=== PATIENT | female | born 1970 | race Two or more races ===

== ENCOUNTER 2020-06-05 17:33 | Inpatient (IN) | payer MEDICAID ==
[~2020-06-05] VITALS: Ht 152.4 cm; Wt 69.2 kg
[2020-06-05 17:45] VITALS: BP 137/80
[2020-06-05] MEDS ORDERED: ERGO500089 PO (17:58)
[2020-06-05] MEDS ORDERED: OMEP20CA16 PO (17:58)
[2020-06-05] MEDS ORDERED: FERR236T2 PO (17:59)
[2020-06-05] MEDS ORDERED: FLU VACC QS 2020-21(6MOS+)/PF 0.5 ML SYRINGE. VAX IM ONE (18:15)
[2020-06-05] MEDS ORDERED: ONDANSETRON PF 4 MG/2 ML VIAL. IVP PRN (18:45)
[2020-06-05 19:00] VITALS: BP 112/64
[2020-06-05] MEDS: IV NORMAL SALINE 1000ML BAG 1,000 ML IV SCH (19:15)
[2020-06-05 19:56] LABS: BILIRUBIN,URINE NEGATIVE (NEG); CLARITY,URINE CLEAR; COLOR,URINE YELLOW; NITRITE,URINE NEGATIVE (NEG); PROTEIN,URINE NEGATIVE (NEG-TRACE)
[2020-06-05 20:04] LABS: BACTERIA,URINE FEW /HPF (0-FEW)
[2020-06-05 20:14] LABS: BASO # 0.1 x10^3/uL (0.0-0.2); BASO % 2 % (0-3); EOS # 0.5 x10^3/uL (0.0-0.7); EOS % 6 % (0-3); HEMATOCRIT 37.7 % (36.0-47.0); HEMOGLOBIN 12.8 g/dL (12.0-15.5); LYMPH % 24 % (24-48); MEAN CORPUSCULAR HEMOGLOBIN 31 pg (25-35); MEAN CORPUSCULAR HGB CONC 34 g/dL (31-37); MEAN CORPUSCULAR VOLUME 92 fL (79-100); MONO # 0.6 x10^3/uL (0.0-1.1); MONO % 7 % (0-9); NEUT # 5.1 x10^3/uL (1.8-7.7); NEUT % 61 % (31-73); PLATELET COUNT 181 x10^3/uL (140-400); RED BLOOD COUNT 4.11 x10^6/uL (3.50-5.40); RED CELL DISTRIBUTION WIDTH 12.8 % (11.5-14.5); WHITE BLOOD COUNT 8.3 x10^3/uL (4.0-11.0)
[2020-06-05 20:20] LABS: CALCIUM 9.2 mg/dL (8.5-10.1); CREATININE 0.7 mg/dL (0.6-1.0); GFR 88.2; POTASSIUM 3.9 mmol/L (3.5-5.1)
[2020-06-05 20:28] LABS: ALBUMIN/GLOBULIN RATIO 0.8 (1.0-1.7); TOTAL BILIRUBIN 0.3 mg/dL (0.2-1.0); TOTAL PROTEIN 6.8 g/dL (6.4-8.2)
[2020-06-05] MEDS ORDERED: CONTRAST GIVEN. MC PRN (21:00)
[2020-06-05] MEDS ORDERED: IOHEXOL 240 MG/ML 50ML VIAL. PO ONE (21:00)
[2020-06-05] MEDS ORDERED: IOHEXOL 300 MG/ML 100ML VIAL. IV ONE (21:00)
--- NOTE | 2020-06-05 21:58 | RAD ---
CT SCAN OF THE ABDOMEN AND PELVIS WITH IV CONTRAST. History: Reason: dxd: LUQ pain / Spl. Instructions: OMNI 300 INJ 75 MLS, PO OMNI 240 30 MLS / Histor y: Comparison:None. Procedure: Contiguous axial images of the abdomen and pelvis were performed after the administration of 75 cc o f Omni 300 IV contrast and oral contrast. Findings: There is a 6 cm length of moderate wall thickening of the proximal sigmoid colon without surrounding inflammation. The appendix is normal. The gallbladder is normal. There is a moderate size hiatal hernia. Liver: There are few subcentimeter cysts in the liver Spleen: Unremarkable Pancreas: Unremarkable Adrenal Glands: Unremarkable Kidneys: There is a small cyst in the posterior left kidney There is no mass or lymphadenopathy. There is no free air. There is no free fluid. The urinary bladder mostly collapsed. Apparent moderate wall thickening is likely hypertrophy.. Impression: 6 cm length of moderate wall thickening of proximal sigmoid colon could be an adenocarcinoma or infla mmatory or infectious colitis. End impression PQRS Compliance Statement: One or more of the following individualized dose reduction techniques were utilized for this examinat ion: 1. Automated exposure control 2. Adjustment of the mA and/or kV according to patient size 3. Use of iterative reconstruction technique Electronically signed by: Lio Sandhu III, MD (06/05/2020 9:55 PM) [place]
--- NOTE | 2020-06-05 22:10 | RAD ---
XR CHEST 2V Technique: PA and lateral views of the chest were obtained. Clinical History: Reason: LEFT LOWER CHEST PAIN / Spl. Instructions: / History: Comparison: None. Findings: The heart and pulmonary vasculature appear within normal limits. There are reticular opacities throu ghout the lungs. The pleural margins are clear. Impression: Reticular opacities of the lungs are nonspecific and could be chronic pulmonary fibrosis. Electronically signed by: Lio Sandhu III, MD (06/05/2020 10:08 PM) [facility]
[2020-06-05] MEDS: fentaNYL PF VIAL 100 MCG/2 ML VIAL IVP PRN (22:39)
[2020-06-05 23:00] VITALS: BP 121/76
[2020-06-06 03:00] VITALS: BP 113/70
[2020-06-06] MEDS: fentaNYL PF VIAL 100 MCG/2 ML VIAL IVP PRN (03:57)
[2020-06-06] MEDS: IV NORMAL SALINE 1000ML BAG 1,000 ML IV SCH ×2 (03:58→16:33)
[2020-06-06 07:00] VITALS: BP 111/93
--- NOTE | 2020-06-06 08:58 | PDOC ---
Provider Note Date of Service: DATE: 06/06/20 TIME: 08:57 Provider Note Pt seen .H&P dictated.#[id number]. DX .Ac abd pain ? colitis Justifications for Admission Other Justification NEVIN SANTIAGO MD Jun 06, 2020 08:58
--- NOTE | 2020-06-06 09:45 | NUR ---
SW following. Discussed with RN, pt from home with family, room air, clear liquid diet, independent. RN advised no SW needs at this time. SW will continue to follow.
--- NOTE | 2020-06-06 09:48 | PDOC2 ---
GI CONSULT Date of Service: DATE: 06/06/20 TIME: 09:47 Reason For Consult: sigmoid adenocarcinoma vs colitis HPI: HPI: 49 y/o female w/ left-sided pain under ribs that began Friday night without precipitating events. Worse w/ movement/walking. Might radiate to middle of abdomen - that just occurred this morning. The pain is "lingering." It was worse at home despite Aleve and ibuprofen so went to see PCP yesterday and was sent to [facility] for workup. H/o GERD improved w/ PPI QD. Might have some dysphagia w/ solid foods hanging - felt in lower chest/epigastrium. Also describes early satiety or possible decreased appetite, though this seems more chronic. No n/v, hematemesis, diarrhea, hematochezia, melena, or weight loss. Strains to have a stool occasionally - last stool day before yesterday. With straining, occasionally passes some bright red blood w/ stool - has happened several times. No previous EGD or colonoscopy. Reports h/o diverticulitis x 3 over the past 6 years - says was seen in ER, had imaging, sent home w/ PO antibiotics and pain i mproved. Current pain is much different. Also h/o anemia so takes iron PRN. No GB, liver, pancreas, or PUD history. PMH: PMH: GERD, diverticulitis, OA FH: Family History: No pertinent hx (deneis GI cancers) Social History: Smoke: Quit ALCOHOL: rare Drugs: None ROS: GEN: Denies fevers, chills, sweats HEENT: Denies blurred vision, sore throat CV: Denies chest pain RESP: Denies shortness of air, cough GI: Per HPI : Denies hematuria, dysuria ENDO: Denies weight changes NEURO: Denies confusion, dizziness MSK: Denies weakness, joint pain/swelling SKIN: Denies jaundice, pruritus Vitals: Vitals: Vital Signs Date Time Temp Pulse Resp B/P (MAP) Pulse Ox O2 Delivery O2 Flow Rate FiO2 06/06/20 07:00 97.5 66 20 111/93 (99) 96 Room Air 97.5 Labs: Labs: Laboratory Tests Test 06/05/20 19:05 06/05/20 20:10 Urine Collection Type Unknown Urine Color Yellow Urine Clarity Clear Urine pH 7.0 (<5.0-8.0) Urine Specific [place] 1.025 (1.000-1.030) Urine Protein Negative mg/dL (NEG-TRACE) Urine Glucose (UA) Negative mg/dL (NEG) Urine Ketones (Stick) Negative mg/dL (NEG) Urine Blood Trace (NEG) Urine Nitrite Negative (NEG) Urine Bilirubin Negative (NEG) Urine Urobilinogen Dipstick 1.0 mg/dL (0.2 mg/dL) Urine Leukocyte Esterase Negative (NEG) Urine RBC 1-2 /HPF (0-2) Urine WBC 1-4 /HPF (0-4) Urine Squamous Epithelial Cells Mod /LPF Urine Bacteria Few /HPF (0-FEW) Urine Mucus Mod /LPF White Blood Count 8.3 x10^3/uL (4.0-11.0) Red Blood Count 4.11 x10^6/uL (3.50-5.40) Hemoglobin 12.8 g/dL (12.0-15.5) Hematocrit 37.7 % (36.0-47.0) Mean Corpuscular Volume 92 fL (79-100) Mean Corpuscular Hemoglobin 31 pg (25-35) Mean Corpuscular Hemoglobin Concent 34 g/dL (31-37) Red Cell Distribution Width 12.8 % (11.5-14.5) Platelet Count 181 x10^3/uL (140-400) Neutrophils (%) (Auto) 61 % (31-73) Lymphocytes (%) (Auto) 24 % (24-48) Monocytes (%) (Auto) 7 % (0-9) Eosinophils (%) (Auto) 6 % (0-3) Basophils (%) (Auto) 2 % (0-3) Neutrophils # (Auto) 5.1 x10^3/uL (1.8-7.7) Lymphocytes # (Auto) 2.0 x10^3/uL (1.0-4.8) Monocytes # (Auto) 0.6 x10^3/uL (0.0-1.1) Eosinophils # (Auto) 0.5 x10^3/uL (0.0-0.7) Basophils # (Auto) 0.1 x10^3/uL (0.0-0.2) Sodium Level 138 mmol/L (136-145) Potassium Level 3.9 mmol/L (3.5-5.1) Chloride Level 104 mmol/L (98-107) Carbon Dioxide Level 27 mmol/L (21-32) Anion Gap 7 (6-14) Blood Urea Nitrogen 12 mg/dL (7-20) Creatinine 0.7 mg/dL (0.6-1.0) Estimated GFR (Cockcroft-Gault) 88.2 BUN/Creatinine Ratio 17 (6-20) Glucose Level 99 mg/dL (70-99) Calcium Level 9.2 mg/dL (8.5-10.1) Total Bilirubin 0.3 mg/dL (0.2-1.0) Aspartate Amino Transf (AST/SGOT) 23 U/L (15-37) Alanine Aminotransferase (ALT/SGPT) 26 U/L (14-59) Alkaline Phosphatase 61 U/L (46-116) Total Protein 6.8 g/dL (6.4-8.2) Albumin 3.0 g/dL (3.4-5.0) Albumin/Globulin Ratio 0.8 (1.0-1.7) Allergies: Coded Allergies: No Known Drug Allergies (Unverified , 06/05/20) Medications: Current Medications Medications (Trade) Dose Ordered Sig/Yanira Route PRN Reason Start Time Stop Time Status Last Admin Dose Admin Sodium Chloride 1,000 ml @ 100 mls/hr Q10H IV 06/05/20 18:45 06/06/20 03:58 Fentanyl Citrate (Fentanyl 2ml Vial) 25 mcg PRN Q3HRS PRN IVP PAIN 06/05/20 18:45 06/06/20 03:57 Iohexol (Omnipaque 240 Mg/ml) 30 ml 1X ONCE PO 06/05/20 21:00 06/05/20 21:01 DC 06/05/20 21:10 Iohexol (Omnipaque 300 Mg/ml) 75 ml 1X ONCE IV 06/05/20 21:00 06/05/20 21:01 DC 06/05/20 21:10 Metronidazole 100 ml @ 100 mls/hr Q12HR IV 06/06/20 10:00 06/06/20 09:38 PE: GEN: NAD HEENT: Atraumatic, PERRL LUNGS: CTAB HEART: RRR ABD: quiet BS, soft, non-distended, tender under left ribs quite laterally EXTREMITY: No edema SKIN: No rashes, no jaundice NEURO/PSYCH: A & O 3 A/P: A/P: Left-sided pain - ?MSK Abnormal CT - 6cm moderate wall thickening in proximal sigmoid colon GERD, early satiety, dysphagia - on PPI, no previous EGD CRC screen - none ?constipation Intermittent blood in stool H/o recurrent diverticulitis Recent NSAID use -- D/w Dr. Sampson. Reviewed w/ Dr. Caraballo - will plan for outpt EGD and colonoscopy. Okay to ADAT. Probably doesn't need antibiotics. Resume PPI. Miralax, etc. if she wants. GIA TRIMBLE Jun 06, 2020 09:48
[2020-06-06 11:00] VITALS: BP 114/67
[2020-06-06] MEDS: CIPROFLOXACIN 400MG PREMIX 200 ML IV SCH ×2 (11:06→21:22)
[2020-06-06] MEDS: PANTOPRAZOLE 40 MG TABLET.DR. PO SCH (11:09)
[2020-06-06] MEDS: ACETAMINOPHEN/CODEINE 300/30MG TABLET. PO PRN ×2 (11:10→21:27)
[2020-06-06] MEDS ORDERED: BISACODYL 5 MG TABLET.DR. PO PRN (11:15)
[2020-06-06] MEDS: POLYETHYLENE GLYCOL 3350 17 GM PACKET. PO SCH (11:57)
[2020-06-06 15:00] VITALS: BP 107/71
--- NOTE | 2020-06-06 17:46 | HP ---
ADMIT DATE: 06/05/2020 MEDICAL HISTORY AND PHYSICAL LOCATION: 416. REASON FOR ADMISSION TO THE HOSPITAL: Severe abdominal pain, left upper quadrant pain for last 24-48 hours. HISTORY OF PRESENT ILLNESS: The patient is a 49-year-old female in [facility]. She was having some loose stools and abdominal pain in left upper quadrant. She had history of diverticulosis in the past. She has pain on and off in the lower quadrant, but never in the left upper quadrant. It was like somebody taking a knife and putting it in the flank. The patient had severe pain, was admitted to the hospital, stat CT scan shows some inflammation in the colon, descending colon and more of a colitis picture. So, the patient was admitted to the hospital and started on broad-spectrum antibiotics, Cipro and Flagyl. GI was consulted. PAST MEDICAL HISTORY: Gastroesophageal reflux disease, diverticulosis, osteoarthritis. FAMILY HISTORY: Unremarkable. SOCIAL HISTORY: Ex-smoker, denies alcohol or drugs. Rare alcohol. FAMILY HISTORY: Unremarkable. REVIEW OF SYMPTOMS: Had a diarrhea, has some loose stool and some blood in the stool after wiping her behind. No vomiting, no fever. Rest of the 14-system review negative. PHYSICAL EXAMINATION: GENERAL: The patient is in a lot of pain in the office. VITAL SIGNS: Temperature 97, pulse 81, respirations 18, blood pressure 137/80, 96 on room air. HEENT: Head is atraumatic. Pupils equal. Oral cavity: No congestion. NECK: Supple. Thyroid not enlarged. JVD not elevated. CHEST: Symmetrical. CARDIOVASCULAR: S1, S2. LUNGS: Clear. ABDOMEN: Soft. Left upper quadrant tenderness to deep palpation. No rebound. Bowel sounds present. No mass palpable. EXTERNAL GENITALIA: Deferred. EXTREMITIES: No calf tenderness, no edema. NEUROLOGIC: Moving all extremities. LABORATORY DATA: White count 8, hemoglobin 13, platelets 181. Electrolytes are; sodium 138, potassium 3.9, chloride 101, bicarbonate 27, BUN 12, creatinine 0.7, glucose 99. LFTs normal. Urine negative for blood or leukocytes. Chest x-ray negative. CT scan of the abdomen and pelvis with contrast shows a 6 cm length of moderate wall thickening, proximal sigmoid colon. FINAL IMPRESSION: 1. Left upper abdominal pain. 2. Possible colitis. 3. Arthritis. PLAN: At this time, admit to hospital. Hydrate with IV fluids, fentanyl for pain control, Cipro and Flagyl. GI is consulted and see how she does in the next 24-48 hours. NEVIN SANTIAGO MD DR: ALEXIS/kristofer JOB#: [id number] / [id number]
[2020-06-06 19:00] VITALS: BP 121/78
[2020-06-06 23:00] VITALS: BP 118/70
[2020-06-07 03:00] VITALS: BP 106/65
[2020-06-07] MEDS: IV NORMAL SALINE 1000ML BAG 1,000 ML IV SCH ×2 (03:41→10:45)
[2020-06-07 07:00] VITALS: BP 110/71
[2020-06-07] MEDS: CIPROFLOXACIN 400MG PREMIX 200 ML IV SCH (07:44)
[2020-06-07] MEDS: PANTOPRAZOLE 40 MG TABLET.DR. PO SCH (07:44)
[2020-06-07] MEDS: POLYETHYLENE GLYCOL 3350 17 GM PACKET. PO SCH (07:44)
--- NOTE | 2020-06-07 09:00 | PDOC ---
PROGRESS NOTES Date of Service: DATE: 06/07/20 TIME: 09:00 Subjective Subjective want to go home Objective Objective Vital Signs Date Time Temp Pulse Resp B/P (MAP) Pulse Ox O2 Delivery O2 Flow Rate FiO2 06/07/20 08:00 Room Air 06/07/20 07:00 98.0 66 18 110/71 (84) 97 98.0 Intake and Output 06/07/20 07:00 Intake Total 3060 ml Output Total 275 ml Balance 2785 ml Intake Oral 660 ml IV Total 1200 ml Other 1200 ml Output Urine Total 275 ml # Voids 3 Physical Exam Abdomen: Soft Heart: Regular rate, Normal S1 Extremities: No clubbing General: Oriented X3 HEENT: PERRLA Lungs: Clear to auscultation Neuro: Normal speech Psych/Mental Status: Mental status NL Skin: No breakdown Assessment Assessment FINAL IMPRESSION: 1. Left upper abdominal pain. 2. Possible colitis. 3. Arthritis. PLAN: ct scan showed colitis CT scan colitis. d/c on oral pills for1 week out pt egd/colon labs ok. At this time, admit to hospital. Hydrate with IV fluids, fentanyl for pain control, Cipro and Flagyl. GI is consulted and see how she does in the next 24-48 hours. Comment Review of Relevant I have reviewed the following items harriett (where applicable) has been applied. Medications Current Medications Acetaminophen/ Codeine Phosphate (Tylenol #3) 1 tab PRN Q6HRS PRN PO MODERATE PAIN Last administered on 06/06/20at 21:27; Start 06/06/20 at 10:45 Bisacodyl (Dulcolax Tab) 5 mg PRN DAILY PRN PO CONSTIPATION; Start 06/06/20 at 11:15 Ciprofloxacin/ Dextrose 200 ml @ 200 mls/hr Q12HR IV Last administered on 06/07/20at 07:44; Start 06/06/20 at 10:00 Metronidazole 100 ml @ 100 mls/hr Q12HR IV Last administered on 06/07/20at 07:44; Start 06/06/20 at 10:00 Pantoprazole Sodium (Protonix) 40 mg DAILYAC PO Last administered on 06/07/20at 07:44; Start 06/06/20 at 11:15 Polyethylene Glycol (miraLAX PACKET) 17 gm DAILY PO Last administered on 06/06/20at 11:57; Start 06/06/20 at 11:30 Vitals/I & O Vital Sign - Last 24 Hours 06/06/20 06/06/20 06/06/20 06/06/20 11:00 11:10 12:22 15:00 Temp 97.5 97.4 97.5 97.4 Pulse 67 67 Resp 18 16 B/P (MAP) 114/67 (83) 107/71 (83) Pulse Ox 98 97 O2 Delivery Room Air Room Air Room Air Room Air 06/06/20 06/06/20 06/06/20 06/06/20 19:00 20:05 21:27 22:27 Temp 98.1 98.1 Pulse 79 Resp 18 20 20 B/P (MAP) 121/78 (92) Pulse Ox 94 O2 Delivery Room Air Room Air Room Air Room Air 06/06/20 06/07/20 06/07/20 06/07/20 23:00 03:00 07:00 08:00 Temp 98.6 97.8 98.0 98.6 97.8 98.0 Pulse 72 63 66 Resp 18 18 18 B/P (MAP) 118/70 (86) 106/65 (79) 110/71 (84) Pulse Ox 96 96 97 O2 Delivery Room Air Room Air Room Air Room Air Intake and Output 06/06/20 06/06/20 06/07/20 15:00 23:00 07:00 Intake Total 300 ml 360 ml 2400 ml Output Total 275 ml Balance 25 ml 360 ml 2400 ml Justifications for Admission Other Justification NEVIN SANTIAGO MD Jun 07, 2020 09:00
[2020-06-07] MEDS ORDERED: CIPR500T94 PO (09:05)
[2020-06-07] MEDS ORDERED: METR500T PO (09:05)
--- NOTE | 2020-06-07 09:29 | NUR ---
SW following. Discussed with RN, pt from home with family, room air, GI soft diet. Discharge order for home with self care. RN advised no SW needs.
--- NOTE | 2020-06-07 10:50 | PDOC ---
Date of Service: DATE: 06/07/20 TIME: 10:49 Subjective: Subjective: Gets to go home today. Still has left muscular pain. Objective: Vital Signs: Vital Signs Date Time Temp Pulse Resp B/P (MAP) Pulse Ox O2 Delivery O2 Flow Rate FiO2 06/07/20 08:00 Room Air 06/07/20 07:00 98.0 66 18 110/71 (84) 97 98.0 PE: GEN: NAD LUNGS: CTAB HEART: RRR ABD: left rib discomfort NEURO/PSYCH: A & O 3 A/P: Left-sided pain - suspect MSK Abnormal CT - 6cm moderate wall thickening in proximal sigmoid colon -- DC per primary. Follow-up for EGD and colonoscopy as outpt - our office will call to arrange. Continue PPI, Miralax. Justicifation of Admission Dx: Justifications for Admission: Justification of Admission Dx: Yes GIA TRIMBLE Jun 07, 2020 10:50
[2020-06-07 11:00] VITALS: BP 112/74
--- NOTE | 2020-06-11 10:49 | PDOC ---
Provider Note Date of Service: DATE: 06/11/20 TIME: 10:48 Provider Note Discharge summary dictated.#[id number]. Justifications for Admission Other Justification NEVIN SANTIAGO MD Jun 11, 2020 10:49
--- NOTE | 2020-06-11 11:20 | DS ---
DATE OF DISCHARGE: 06/07/2020 REASON FOR ADMISSION TO THE HOSPITAL: Left upper abdominal pain, flank pain. CONSULTATION: Dr. Caraballo. PROCEDURES DONE: CT of the abdomen and pelvis with contrast. HOSPITAL COURSE: The patient is a 49-year-old female who had severe abdominal pain and she had a history of diverticulosis in the past. She had pain mostly in the lower pelvic area. This time is upper abdominal pain severe and the patient was admitted to the hospital for pain control and further investigation. Had a CT scan, which showed 6 cm inflammation of the colon and the proximal sigmoid colon and the patient was given Flagyl and Cipro. Pain was controlled with medications, IV pain medications, fentanyl. Her CBC, chem profile was unremarkable and seen by GI and it was recommended that the patient would need an outpatient EGD, colonoscopy and scheduled for outpatient. Was given 1-week course of outpatient Cipro and Flagyl for abnormal CT findings, namely, colitis picture. FINAL DIAGNOSES: 1. Abdominal pain secondary to colitis, new onset. 2. History of diverticulosis. DISPOSITION: Home. See discharge medications. Follow up as outpatient with GI, scheduled for EGD and colonoscopy. NEVIN SANTIAGO MD DR: ALEXIS/kristofer JOB#: [id number] / [id number]
== END 2020-06-07 13:20 | disposition home or self-care (01) | DRG 386 ==
LOC: 4 NORTH 17:33
PROVIDERS: ADMIT Internal Medicine; ATTEND Internal Medicine
DX: K51.90 Ulcerative colitis, unspecified, without complications (principal); K92.1 Melena; K52.9 Noninfective gastroenteritis and colitis, unspecified; K21.9 Gastro-esophageal reflux disease without esophagitis; M19.90 Unspecified osteoarthritis, unspecified site; R13.10 Dysphagia, unspecified; Z87.891 Personal history of nicotine dependence
CPT/HCPCS: 36415; 71046; 74177; 80053; 81001; 85025; 90471; 90686; J0744; J2405; J3010; J3490; J7030; Q9966; Q9967; G0378

== ENCOUNTER 2020-08-16 14:42 | Inpatient (IN) | payer MEDICAID ==
[~2020-08-16] VITALS: Ht 152.4 cm; Wt 76.0 kg
[~2020-08-16 14:42] MED LIST: CIPR500T94 PO; ERGO500027 PO; FERR236T2 PO; METR500T PO; OMEP20CA16 PO
[2020-08-16 15:00] VITALS: BP 106/73
[2020-08-16] MEDS ORDERED: ONDANSETRON ODT 4 MG TAB.RAPDIS. PO PRN (15:45)
--- NOTE | 2020-08-16 16:26 | PDOC2 ---
GI CONSULT Date of Service: DATE: 08/16/20 TIME: 16:12 Reason For Consult: chronic colitis HPI: HPI: 50 y/o female directly admitted by Dr. Sampson. She saw him in the office on Friday for left-sided abdominal pain that started last week w/o precipitating events. Pain is "twisting" and worse while moving and laying in bed but not while standing. No change with eating or stooling. Associated w/ three episodes of hematochezia (describes "just bright red blood" - last occurred Friday). Says Dr. Sampson prescribed two antibiotics. This + ibuprofen + trial of liquid diet was ineffective. She felt worse today so she called his office and was advised to come to the hospital. Labs and CT ordered. We saw her in 06/2020 for similar symptoms. Had MSK-type left-sided pain under ribs. CT showed 6cm of wall thickening in sigmoid colon. She was advised to schedule outpt EGD and colonoscopy which she has not done - says was trying to build up vacation days before scheduling. Since last admission, pain has not been bothersome but she might still feel something in that area, then suddenly worse last week. H/o GERD controlled w/ PPI - associated occasional solid-food dysphagia (food hangs in midchest and then passes), early satiety, and some decreased appetite. No diarrhea or constipation - previously reported some intermittent hematochezia w/ straining. Was advised to use Miralax when discharged last. No weight loss. No previous EGD or colonoscopy. H/o diverticulitis x 3 over the past 6 years - was seen in ERs, had imaging, sent home w/ atbx. Diverticulosis not mentioned on CT done here in 06/2020. No GB, liver, pancreas, or PUD history. Takes iron sometimes - not often. PMH: PMH: per HPI, OA FH: Family History: No pertinent hx Social History: Smoke: Quit ALCOHOL: rare Drugs: None ROS: GEN: Denies fevers, chills, sweats HEENT: +sinus congestion x 2 weeks CV: Denies chest pain RESP: Denies shortness of air, cough GI: Per HPI : Denies hematuria, dysuria ENDO: Denies weight changes NEURO: Denies confusion, dizziness MSK: Denies weakness, joint pain/swelling SKIN: Denies jaundice, pruritus Vitals: Vitals: Vital Signs Date Time Temp Pulse Resp B/P (MAP) Pulse Ox O2 Delivery O2 Flow Rate FiO2 08/16/20 15:00 98.1 84 18 106/73 (84) 96 Room Air 98.1 Allergies: Coded Allergies: No Known Drug Allergies (Unverified , 06/05/20) PE: GEN: uncomfortable HEENT: nasal congestion LUNGS: CTAB HEART: RRR ABD: quiet BS, pain tracking along left ribs toward left flank, initially also had pain in left periumbilical region with stethoscope placement - difficult to recreate EXTREMITY: No edema SKIN: No rashes, no jaundice NEURO/PSYCH: A & O 3, in tears, anxious, cooperative A/P: A/P: Left-sided pain (under ribs, left flank) - seems MSK Hematochezia - occurred three times during the past week Chronic dyspeptic symptoms, occasional dysphagia - on PPI CRC screen - none H/o recurrent diverticulitis (?) -- Await labs and imaging. Continue acid geriatric psychiatrist. Drinking contrast for CT - okay for clear liquid per GI. GIA TRIMBLE Aug 16, 2020 16:26
[2020-08-16 16:37] LABS: CALCIUM 9.2 mg/dL (8.5-10.1); CREATININE 0.7 mg/dL (0.6-1.0); GFR 87.9
[2020-08-16 16:40] LABS: AMYLASE 57 U/L (25-115); LIPASE 189 U/L (73-393)
[2020-08-16] MEDS: ACETAMINOPHEN 500 MG TABLET PO PRN ×2 (16:40→23:08)
[2020-08-16 16:43] LABS: ALBUMIN 3.3 g/dL (3.4-5.0); ALBUMIN/GLOBULIN RATIO 0.9 (1.0-1.7); TOTAL BILIRUBIN 0.2 mg/dL (0.2-1.0); TOTAL PROTEIN 6.8 g/dL (6.4-8.2)
[2020-08-16] MEDS ORDERED: IOHEXOL 240 MG/ML 50ML VIAL. PO ONE (17:00)
[2020-08-16] MEDS ORDERED: IOHEXOL 300 MG/ML 100ML VIAL. IV ONE (17:00)
[2020-08-16] MEDS ORDERED: CONTRAST GIVEN. MC PRN (17:15)
--- NOTE | 2020-08-16 17:33 | RAD ---
EXAM: CT Abdomen and Pelvis with IV contrast CLINICAL HISTORY: LLQ abdominal pain COMPARISON: CT 06/05/2020 TECHNIQUE: Helical CT of the abdomen and pelvis was performed following the administration of intrave nous contrast. Axial, coronal and sagittal reformatted images were generated. PQRS compliance statement - One or more of the following individualized dose reduction techniques wer e utilized for this study: 1. Automated exposure control 2. Adjustment of the mA and/or kV according to patient size 3. Use of iterative reconstruction technique FINDINGS: Lower Chest: Right axillary lymph node measures 1.1 x 0.9 cm. Small hiatal hernia. Abdomen and Pelvis: Hepatic hypoattenuation likely fatty liver. Low-density hepatic lesions may be cystic. Gallbladder is normal. No biliary dilatation. Spleen, adrenal glands are unremarkable. Indeterminate 5 mm hypodense pancreatic tail lesion is seen. Symmetric nephrograms. 14 mm left interpolar renal lesion hypodense renal lesion measures greater herberth n simple fluid, approximately 40 Hounsfield units. No hydronephrosis or hydroureter. Mild colonic stool content is seen. No small or large bowel dilatation. Colonic diverticulosis withou t evidence for acute diverticulitis. Appendix is normal. Infiltration is seen about the sigmoid colon with a few small lymph nodes. No abdominal or pelvic lymphadenopathy. 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 No abdominal or pelvic ascites. Bones: No aggressive osseous lesion is seen. Degenerative changes of the spine are seen. No spondylolisthesi s. Straightening of the lumbar lordosis. IMPRESSION: 1. Infiltration about a short segment of the sigmoid colon may be seen with colitis including acute diverticulitis. However as these findings were also seen on 06/05/2020, these findings may also represe nt primary colonic malignancy and therefore correlation with colonoscopy is recommended. 2. Low-density left interpolar renal lesion possibly hemorrhagic/proteinaceous cyst although solid m ass would also have this appearance. Further evaluation with nonemergent MRI or ultrasound can be per formed. 3. Indeterminate 5 mm pancreatic tail hypodense nodule can be further assessed by MRI. 4. Right axillary lymph node measures 1.1 x 0.9 cm, of uncertain clinical significance and may be re active. Dedicated thoracic imaging can be performed if clinically indicated. 5. Hepatic hypoattenuation likely fatty liver. Electronically signed by: Gary Dugan MD (08/16/2020 5:30 PM) [facility]
[2020-08-16 17:44] LABS: BILIRUBIN,URINE NEGATIVE (NEG); CLARITY,URINE CLEAR; COLOR,URINE AMBER; NITRITE,URINE NEGATIVE (NEG); PH,URINE 6.5 (<5.0-8.0); PROTEIN,URINE NEGATIVE (NEG-TRACE); UROBILINOGEN,URINE 0.2 mg/dL (0.2 mg/dL)
[2020-08-16 17:52] LABS: BACTERIA,URINE MODERATE /HPF (0-FEW)
[2020-08-16 17:53] LABS: RBC,URINE 0 /HPF (0-2); WBC,URINE OCC /HPF (0-4)
[2020-08-16] MEDS: PANTOPRAZOLE IV PUSH 40 MG VIAL. IVP SCH (18:19)
[2020-08-16] MEDS: IV NORMAL SALINE 1000ML BAG 1,000 ML IV SCH (18:19)
[2020-08-16 19:00] VITALS: BP 111/73
--- NOTE | 2020-08-16 20:14 | RAD ---
INDICATION: Reason: Chest pain / Spl. Instructions: / History: COMPARISON: June 05, 2020 FINDINGS: 2 view of chest obtained. No definite focal airspace consolidation or pulmonary edema. Cardiac silhouette is borderline in size but similar to prior. Mild degenerative changes of the spine IMPRESSION: * No focal airspace consolidation or edema. Electronically signed by: Jacob Hernandez MD (08/16/2020 8:12 PM) [id number]
[2020-08-16] MEDS: CIPROFLOXACIN 400MG PREMIX 200 ML IV SCH (21:30)
[2020-08-16 23:00] VITALS: BP 135/85
[2020-08-16] MEDS: CETIRIZINE HCL 10 MG TABLET. PO SCH (23:47)
[2020-08-17] MEDS: IV NORMAL SALINE 1000ML BAG 1,000 ML IV SCH ×3 (01:39→22:00)
[2020-08-17 03:20] VITALS: BP 116/62
[2020-08-17] MEDS: ACETAMINOPHEN 500 MG TABLET PO PRN ×2 (05:28→16:47)
[2020-08-17 07:00] VITALS: BP 135/86
[2020-08-17 07:20] LABS: BASO % 1 % (0-3); EOS # 0.6 x10^3/uL (0.0-0.7); EOS % 11 % (0-3); HEMATOCRIT 34.5 % (36.0-47.0); HEMOGLOBIN 11.6 g/dL (12.0-15.5); LYMPH # 2.4 x10^3/uL (1.0-4.8); LYMPH % 46 % (24-48); MEAN CORPUSCULAR HEMOGLOBIN 31 pg (25-35); MEAN CORPUSCULAR HGB CONC 34 g/dL (31-37); MEAN CORPUSCULAR VOLUME 91 fL (79-100); MONO # 0.4 x10^3/uL (0.0-1.1); MONO % 8 % (0-9); NEUT # 1.8 x10^3/uL (1.8-7.7); NEUT % 35 % (31-73); PLATELET COUNT 211 x10^3/uL (140-400); RED BLOOD COUNT 3.79 x10^6/uL (3.50-5.40); RED CELL DISTRIBUTION WIDTH 13.3 % (11.5-14.5); WHITE BLOOD COUNT 5.2 x10^3/uL (4.0-11.0)
--- NOTE | 2020-08-17 08:41 | PDOC2 ---
PAT ACEVES Suad VISUAL COORDINATOR 08/17/20 0841: CONSULT Date of Consult Date of Consult DATE: 08/17/20 TIME: 08:33 Reason for Consult Reason for Consult: chronic colitis Referring Physician Referring Physician: Dr Sampson Identification/Chief Complaint Chief Complaint abdominal pain Source Source: Chart review, Patient History of Present Illness Reason for Visit: 2 admission for similar pain. Initially seen in Jun for left sided pain, CT with colitis. Improved, discharged, to fu with Gi for colonoscopy--had not arranged yet due to work. sharp stabbing left sided pain that radiates to back. Friday blood in stools. Associated nausea. No diarrhea until today and now a couple of loose stools this AM. Left sided pain does seem worse and more constant this admission Past Medical History GI: GERD Past Surgical History Past Surgical History: No pertinent history Family History Family History: Other (noncontributory to current illness ) Social History Quit (still does have occasionally, none in 2 months ) ALCOHOL: rare Drugs: None Current Medications Current Medications Current Medications Acetaminophen (Tylenol) 500 mg PRN Q6HRS PRN PO MILD PAIN / TEMP > 100.3'F Last administered on 08/17/20at 05:28; Start 08/16/20 at 15:45 Ondansetron HCl (Zofran Odt) 8 mg PRN Q8HRS PRN PO NAUSEA/VOMITING; Start 08/16/20 at 15:45 Sodium Chloride 1,000 ml @ 100 mls/hr Q10H IV Last administered on 08/17/20at 01:39; Start 08/16/20 at 15:45 Pantoprazole Sodium (PROTONIX VIAL for IV PUSH) 40 mg DAILYAC IVP Last administered on 08/16/20at 18:19; Start 08/16/20 at 16:30 Iohexol (Omnipaque 300 Mg/ml) 75 ml 1X ONCE IV Last administered on 08/16/20at 17:16; Start 08/16/20 at 17:00; Stop 08/16/20 at 17:01; Status DC Iohexol (Omnipaque 240 Mg/ml) 30 ml 1X ONCE PO Last administered on 08/16/20at 17:16; Start 08/16/20 at 17:00; Stop 08/16/20 at 17:01; Status DC Info (CONTRAST GIVEN -- Rx MONITORING) 1 each PRN DAILY PRN MC SEE COMMENTS; Start 08/16/20 at 17:15; Stop 08/18/20 at 17:14 Ciprofloxacin/ Dextrose 200 ml @ 200 mls/hr Q12HR IV Last administered on 08/16/20at 21:30; Start 08/16/20 at 21:00 Metronidazole 100 ml @ 100 mls/hr Q12H IV Last administered on 08/16/20at 20:17; Start 08/16/20 at 20:00 Guaifenesin (Mucinex) 600 mg BID PO Last administered on 08/16/20at 23:47; Start 08/16/20 at 23:30 Cetirizine HCl (ZyrTEC) 10 mg HS PO Last administered on 08/16/20at 23:47; Start 08/16/20 at 23:30 Active Scripts Active Flagyl (Metronidazole) 500 Mg Tablet 1 Tab PO BID Cipro (Ciprofloxacin Hcl) 500 Mg Tablet 1 Tab PO BID 7 Days Reported Iron (Ferrous Gluconate) 236 Mg Tablet 1 Tab PO DAILY 30 Days Vitamin D2 (Ergocalciferol (Vitamin D2)) 1,250 Mcg Capsule 50,000 Mcg PO WEEKLY Omeprazole 20 Mg Capsule.dr 20 Mg PO DAILY Allergies Allergies: Coded Allergies: No Known Drug Allergies (Unverified , 06/05/20) ROS General: No: Chills, Other (fevers ) PSYCHOLOGICAL ROS: No: Anxiety, Depression Eyes: No Blurry vision, No Double vision HEENT: No: Heacaches, Sore Throat Hematological and Lymphatic: No: Bleeding Problems, Blood Clots Respiratory: No: Cough, Shortness of breath Cardiovascular: No Chest Pain, No Palpitations Gastrointestinal: Yes Other (see hpi) Genitourinary: No Dysuria, No Retention Musculoskeletal: No Joint Pain, No Muscle Pain Neurological: No Impaired Coord/balance, No Numbness/Tingling Skin: No Pruritus, No Rash Physical Exam General: Alert, Oriented X3, Cooperative HEENT: Atraumatic, PERRLA Lungs: Clear to auscultation, Normal air movement Heart: Regular rate, Normal S1, Normal S2 Abdomen: Soft, Other (epigastric, LUQ TTP) Extremities: No clubbing, No cyanosis Skin: No rashes, No breakdown Neuro: Normal gait, Normal speech Psych/Mental Status: Mental status NL, Mood NL MUSCULOSKELETAL: No deformity, No swelling Vitals VITALS Vital Signs Date Time Temp Pulse Resp B/P (MAP) Pulse Ox O2 Delivery O2 Flow Rate FiO2 08/17/20 08:00 Room Air 08/17/20 07:00 98.1 60 18 135/86 (102) 97 98.1 Labs Labs Laboratory Tests Test 08/16/20 16:05 08/16/20 16:50 08/17/20 06:25 Sodium Level 143 mmol/L (136-145) Potassium Level 4.0 mmol/L (3.5-5.1) Chloride Level 105 mmol/L (98-107) Carbon Dioxide Level 32 mmol/L (21-32) Anion Gap 6 (6-14) Blood Urea Nitrogen 11 mg/dL (7-20) Creatinine 0.7 mg/dL (0.6-1.0) Estimated GFR (Cockcroft-Gault) 87.9 BUN/Creatinine Ratio 16 (6-20) Glucose Level 118 mg/dL (70-99) Calcium Level 9.2 mg/dL (8.5-10.1) Total Bilirubin 0.2 mg/dL (0.2-1.0) Aspartate Amino Transf (AST/SGOT) 15 U/L (15-37) Alanine Aminotransferase (ALT/SGPT) 25 U/L (14-59) Alkaline Phosphatase 60 U/L (46-116) Total Protein 6.8 g/dL (6.4-8.2) Albumin 3.3 g/dL (3.4-5.0) Albumin/Globulin Ratio 0.9 (1.0-1.7) Amylase Level 57 U/L (25-115) Lipase 189 U/L (73-393) Urine Collection Type Unknown Urine Color Jen Urine Clarity Clear Urine pH 6.5 (<5.0-8.0) Urine Specific [place] 1.025 (1.000-1.030) Urine Protein Negative mg/dL (NEG-TRACE) Urine Glucose (UA) Negative mg/dL (NEG) Urine Ketones (Stick) Negative mg/dL (NEG) Urine Blood Negative (NEG) Urine Nitrite Negative (NEG) Urine Bilirubin Negative (NEG) Urine Urobilinogen Dipstick 0.2 mg/dL (0.2 mg/dL) Urine Leukocyte Esterase Small (NEG) Urine RBC 0 /HPF (0-2) Urine WBC Occ /HPF (0-4) Urine Squamous Epithelial Cells Many /LPF Urine Bacteria Moderate /HPF (0-FEW) Urine Mucus Marked /LPF White Blood Count 5.2 x10^3/uL (4.0-11.0) Red Blood Count 3.79 x10^6/uL (3.50-5.40) Hemoglobin 11.6 g/dL (12.0-15.5) Hematocrit 34.5 % (36.0-47.0) Mean Corpuscular Volume 91 fL (79-100) Mean Corpuscular Hemoglobin 31 pg (25-35) Mean Corpuscular Hemoglobin Concent 34 g/dL (31-37) Red Cell Distribution Width 13.3 % (11.5-14.5) Platelet Count 211 x10^3/uL (140-400) Neutrophils (%) (Auto) 35 % (31-73) Lymphocytes (%) (Auto) 46 % (24-48) Monocytes (%) (Auto) 8 % (0-9) Eosinophils (%) (Auto) 11 % (0-3) Basophils (%) (Auto) 1 % (0-3) Neutrophils # (Auto) 1.8 x10^3/uL (1.8-7.7) Lymphocytes # (Auto) 2.4 x10^3/uL (1.0-4.8) Monocytes # (Auto) 0.4 x10^3/uL (0.0-1.1) Eosinophils # (Auto) 0.6 x10^3/uL (0.0-0.7) Basophils # (Auto) 0.0 x10^3/uL (0.0-0.2) Laboratory Tests Test 08/16/20 16:05 08/16/20 16:50 08/17/20 06:25 Sodium Level 143 mmol/L (136-145) Potassium Level 4.0 mmol/L (3.5-5.1) Chloride Level 105 mmol/L (98-107) Carbon Dioxide Level 32 mmol/L (21-32) Anion Gap 6 (6-14) Blood Urea Nitrogen 11 mg/dL (7-20) Creatinine 0.7 mg/dL (0.6-1.0) Estimated GFR (Cockcroft-Gault) 87.9 BUN/Creatinine Ratio 16 (6-20) Glucose Level 118 mg/dL (70-99) Calcium Level 9.2 mg/dL (8.5-10.1) Total Bilirubin 0.2 mg/dL (0.2-1.0) Aspartate Amino Transf (AST/SGOT) 15 U/L (15-37) Alanine Aminotransferase (ALT/SGPT) 25 U/L (14-59) Alkaline Phosphatase 60 U/L (46-116) Total Protein 6.8 g/dL (6.4-8.2) Albumin 3.3 g/dL (3.4-5.0) Albumin/Globulin Ratio 0.9 (1.0-1.7) Amylase Level 57 U/L (25-115) Lipase 189 U/L (73-393) Urine Collection Type Unknown Urine Color Jen Urine Clarity Clear Urine pH 6.5 (<5.0-8.0) Urine Specific [place] 1.025 (1.000-1.030) Urine Protein Negative mg/dL (NEG-TRACE) Urine Glucose (UA) Negative mg/dL (NEG) Urine Ketones (Stick) Negative mg/dL (NEG) Urine Blood Negative (NEG) Urine Nitrite Negative (NEG) Urine Bilirubin Negative (NEG) Urine Urobilinogen Dipstick 0.2 mg/dL (0.2 mg/dL) Urine Leukocyte Esterase Small (NEG) Urine RBC 0 /HPF (0-2) Urine WBC Occ /HPF (0-4) Urine Squamous Epithelial Cells Many /LPF Urine Bacteria Moderate /HPF (0-FEW) Urine Mucus Marked /LPF White Blood Count 5.2 x10^3/uL (4.0-11.0) Red Blood Count 3.79 x10^6/uL (3.50-5.40) Hemoglobin 11.6 g/dL (12.0-15.5) Hematocrit 34.5 % (36.0-47.0) Mean Corpuscular Volume 91 fL (79-100) Mean Corpuscular Hemoglobin 31 pg (25-35) Mean Corpuscular Hemoglobin Concent 34 g/dL (31-37) Red Cell Distribution Width 13.3 % (11.5-14.5) Platelet Count 211 x10^3/uL (140-400) Neutrophils (%) (Auto) 35 % (31-73) Lymphocytes (%) (Auto) 46 % (24-48) Monocytes (%) (Auto) 8 % (0-9) Eosinophils (%) (Auto) 11 % (0-3) Basophils (%) (Auto) 1 % (0-3) Neutrophils # (Auto) 1.8 x10^3/uL (1.8-7.7) Lymphocytes # (Auto) 2.4 x10^3/uL (1.0-4.8) Monocytes # (Auto) 0.4 x10^3/uL (0.0-1.1) Eosinophils # (Auto) 0.6 x10^3/uL (0.0-0.7) Basophils # (Auto) 0.0 x10^3/uL (0.0-0.2) Assessment/Plan Assessment/Plan abdominal pain, CT reviewed--similar sigmoid findings as Jeremiah currently no surgical indications, GI following KOKI LANE MD 08/17/20 1015: CONSULT Assessment/Plan Assessment/Plan Agree with above PAT ACEVES APRN Aug 17, 2020 08:[address] MD Aug 17, 2020 10:15
[2020-08-17] MEDS: CIPROFLOXACIN 400MG PREMIX 200 ML IV SCH ×2 (08:44→22:01)
[2020-08-17] MEDS: PANTOPRAZOLE IV PUSH 40 MG VIAL. IVP SCH (08:49)
--- NOTE | 2020-08-17 09:24 | PDOC ---
Provider Note Date of Service: DATE: 08/17/20 TIME: 09:23 Provider Note Pt seen.H&P dictated.#[id number]. Justifications for Admission Other Justification NEVIN SANTIAGO MD Aug 17, 2020 09:24
--- NOTE | 2020-08-17 09:43 | HP ---
ADMIT DATE: 08/16/2020 MEDICAL HISTORY AND PHYSICAL PATIENT LOCATION: [facility]. REASON FOR ADMISSION TO THE HOSPITAL: Recurrent abdominal pain. HISTORY OF PRESENT ILLNESS: The patient is a 50-year-old female patient known to me. She was having abdominal pain. She was admitted 2 months ago with similar abdominal pain. At that time, had a CT scan, shows short segment of colitis, was treated with oral antibiotics. She had a CT scan last in June, supposed to get outpatient colonoscopy. She was not able to get colonoscopy and she was having more pain in that same area, worse and then the patient was admitted to the hospital, but worsening pain and repeat CT scan was done, which shows same area of colon shows some inflammation and also suspicious for malignancy. PAST MEDICAL HISTORY: Had diverticulosis, reflux disease, arthritis. FAMILY HISTORY: Unremarkable. SOCIAL HISTORY: Ex-smoker, denies smoking. No alcohol or drug abuse. FAMILY HISTORY: Unremarkable as mentioned above. REVIEW OF SYSTEMS: Was is in the hospital in June for abdominal pain, supposed to get a colonoscopy. She did not have that. Has some blood in the stool little bit and then she has been in more pain, not able to walk. ALLERGIES: No allergies. MEDICATIONS: The patient was started on Cipro and Flagyl here and omeprazole. She does not take much medications. REVIEW OF SYMPTOMS: Severe pain in the left lower, not able to work, has some blood in the stool. Has some nausea, decreased appetite. PHYSICAL EXAMINATION: GENERAL: The patient is in pain. VITAL SIGNS: Temperature 98, pulse 70, respirations 18, blood pressure 110/73, 96 on room air. HEENT: Head is atraumatic. Pupils equal. Oral cavity: No congestion. NECK: Supple. CHEST: Symmetrical. CARDIOVASCULAR: S1, S2. LUNGS: Clear. ABDOMEN: Left lower quadrant tenderness to deep palpation. No rebound. Bowel sounds are present. EXTERNAL GENITALIA: No Perry. RECTAL: Deferred. EXTREMITIES: No calf tenderness, no edema. LABORATORY DATA: Shows a white count of 5, hemoglobin 11, platelets 211. Electrolytes show sodium 143, potassium 4.0, chloride 105, bicarb 32, BUN 11, creatinine 0.7, glucose 118. LFTs were normal. Amylase and lipase was normal. Urine shows small leukocyte esterase, occasional wbc. Chest x-ray was negative. CT scan of the abdomen and pelvis shows sigmoid colon, small area of colon inflammation. Also, diverticulosis, 5 mm small hypodense nodule in the tail of the pancreas, another 40 mm lesion in the left kidney. FINAL IMPRESSION: 1. Abdominal pain secondary to colitis. 2. Possible ischemic versus inflammatory colitis. Also CT scan shows cannot rule out malignancy. 3. Recurrent abdominal pain. PLAN: At this time, was admitted to the hospital and started on Cipro and Flagyl IV. GI was consulted. Hopefully, we can get colonoscopy and a biopsy and also surgical consult as a backup. NEVIN SANTIAGO MD DR: ALEXIS/kristofer JOB#: [id number] / [id number]
--- NOTE | 2020-08-17 09:46 | NUR ---
SW following. Discussed with RN, pt from home with family, room air, regular diet. Surgery and GI following, however no surgical indications at this time. Dr. Sampson wanting GI to consider a colonoscopy. Pt currently on IV abx. Dr. Sampson anticipates possible discharge home tomorrow (08/18/20). RN advised no SW needs at this time. SW will continue to follow.
--- NOTE | 2020-08-17 10:38 | PDOC ---
Date of Service: DATE: 08/17/20 TIME: 10:29 Subjective: Subjective: Feels bad still - ongoing pain. No bleeding, ate a little - now not sure but might feel bad after eating. Objective: Objective: D/w Dr. Sampson - would like for pt to have inpt colonoscopy tomorrow. D/w nurse - INÉSID swab ordered. Vital Signs: Vital Signs Date Time Temp Pulse Resp B/P (MAP) Pulse Ox O2 Delivery O2 Flow Rate FiO2 08/17/20 08:00 Room Air 08/17/20 07:00 98.1 60 18 135/86 (102) 97 98.1 Labs: Laboratory Tests Test 08/16/20 16:05 08/16/20 16:50 08/17/20 06:25 08/17/20 09:40 Sodium Level 143 mmol/L Potassium Level 4.0 mmol/L Chloride Level 105 mmol/L Carbon Dioxide Level 32 mmol/L Anion Gap 6 Blood Urea Nitrogen 11 mg/dL Creatinine 0.7 mg/dL Estimated GFR (Cockcroft-Gault) 87.9 BUN/Creatinine Ratio 16 Glucose Level 118 mg/dL Calcium Level 9.2 mg/dL Total Bilirubin 0.2 mg/dL Aspartate Amino Transf (AST/SGOT) 15 U/L Alanine Aminotransferase (ALT/SGPT) 25 U/L Alkaline Phosphatase 60 U/L Total Protein 6.8 g/dL Albumin 3.3 g/dL Albumin/Globulin Ratio 0.9 Amylase Level 57 U/L Lipase 189 U/L Urine Collection Type Unknown Urine Color Jen Urine Clarity Clear Urine pH 6.5 Urine Specific [place] 1.025 Urine Protein Negative mg/dL Urine Glucose (UA) Negative mg/dL Urine Ketones (Stick) Negative mg/dL Urine Blood Negative Urine Nitrite Negative Urine Bilirubin Negative Urine Urobilinogen Dipstick 0.2 mg/dL Urine Leukocyte Esterase Small Urine RBC 0 /HPF Urine WBC Occ /HPF Urine Squamous Epithelial Cells Many /LPF Urine Bacteria Moderate /HPF Urine Mucus Marked /LPF White Blood Count 5.2 x10^3/uL Red Blood Count 3.79 x10^6/uL Hemoglobin 11.6 g/dL Hematocrit 34.5 % Mean Corpuscular Volume 91 fL Mean Corpuscular Hemoglobin 31 pg Mean Corpuscular Hemoglobin Concent 34 g/dL Red Cell Distribution Width 13.3 % Platelet Count 211 x10^3/uL Neutrophils (%) (Auto) 35 % Lymphocytes (%) (Auto) 46 % Monocytes (%) (Auto) 8 % Eosinophils (%) (Auto) 11 % Basophils (%) (Auto) 1 % Neutrophils # (Auto) 1.8 x10^3/uL Lymphocytes # (Auto) 2.4 x10^3/uL Monocytes # (Auto) 0.4 x10^3/uL Eosinophils # (Auto) 0.6 x10^3/uL Basophils # (Auto) 0.0 x10^3/uL SARS-CoV-2 Antigen (Rapid) Negative Imaging: CT A/P 08/16 IMPRESSION: 1. Infiltration about a short segment of the sigmoid colon may be seen with colitis including acute diverticulitis. However as these findings were also seen on 06/05/2020, these findings may also represent primary colonic malignancy and therefore correlation with colonoscopy is recommended. 2. Low-density left interpolar renal lesion possibly hemorrhagic/proteinaceous cyst although solid mass would also have this appearance. Further evaluation with nonemergent MRI or ultrasound can be performed. 3. Indeterminate 5 mm pancreatic tail hypodense nodule can be further assessed by MRI. 4. Right axillary lymph node measures 1.1 x 0.9 cm, of uncertain clinical significance and may be reactive. Dedicated thoracic imaging can be performed if clinically indicated. 5. Hepatic hypoattenuation likely fatty liver. PE: GEN: NAD - couple bites taken from biscuits and gravy and eggs LUNGS: CTAB HEART: RRR ABD: tender under left ribs NEURO/PSYCH: A & O 3 A/P: Left-sided pain H/o hematochezia, GERD, occasional dysphagia Anemia - new Abnormal CT - infiltration about a short segment of the sigmoid colon, left renal lesion, indeterminate 5mm pancreatic tail nodule, right axillary lymphadenopathy -- D/w Dr. Caraballo - will proceed w/ EGD and colonoscopy tomorrow pending COVID swab and after prep. D/w nurse. Ate some bites of regular breakfast - change to clear liquids now, NPO at midnight. Check anemia parameters for completeness, consider MRI as outpt re: pancreatic nodule. Continue PPI. Justicifation of Admission Dx: Justifications for Admission: Justification of Admission Dx: Yes GIA TRIMBLE Aug 17, 2020 10:38
[2020-08-17 11:00] VITALS: BP 130/82
[2020-08-17] MEDS ORDERED: BISACODYL 5 MG TABLET.DR. PO ONE ×2 (12:00→16:00)
[2020-08-17] MEDS ORDERED: MAGNESIUM CITRATE 296 ML SOLUTION. PO ONE (12:00)
[2020-08-17] MEDS ORDERED: POLYETHYLENE GLYCOL 3350 BTL 238 GM POWDER PO ONE (13:00)
[2020-08-17 15:00] VITALS: BP 128/68
[2020-08-17 19:00] VITALS: BP 141/89
[2020-08-17] MEDS: CETIRIZINE HCL 10 MG TABLET. PO SCH (20:37)
[2020-08-17 23:00] VITALS: BP 134/83
[2020-08-18] MEDS: ACETAMINOPHEN 500 MG TABLET PO PRN ×2 (02:11→08:56)
[2020-08-18 03:00] VITALS: BP 124/85
[2020-08-18] MEDS ORDERED: MORPHINE SULFATE 2 MG/ML VIAL. IVP PRN (06:00)
[2020-08-18] MEDS ORDERED: IV RINGERS,LACTATED 1000ML 1,000 ML IV SCH (06:00)
[2020-08-18] MEDS ORDERED: fentaNYL PF VIAL 100 MCG/2 ML VIAL IVP PRN ×2 (06:00)
[2020-08-18] MEDS ORDERED: PROCHLORPERAZINE 10 MG/2 ML VIAL. IVP PRN (06:00)
[2020-08-18] MEDS ORDERED: HYDROmorphone 2 MG/ML VIAL IVP PRN (06:00)
[2020-08-18 07:00] VITALS: BP 145/93
[2020-08-18] MEDS: PANTOPRAZOLE IV PUSH 40 MG VIAL. IVP SCH (08:57)
[2020-08-18] MEDS: IV NORMAL SALINE 1000ML BAG 1,000 ML IV SCH (08:57)
--- NOTE | 2020-08-18 09:04 | PDOC ---
PROGRESS NOTES Date of Service: DATE: 08/18/20 TIME: 09:02 Subjective Subjective feels better today Objective Objective Vital Signs Date Time Temp Pulse Resp B/P (MAP) Pulse Ox O2 Delivery O2 Flow Rate FiO2 08/18/20 07:00 97.7 71 20 145/93 (110) 96 Room Air 97.7 Physical Exam Abdomen: Soft, Other (epigastric, LUQ TTP) Heart: Regular rate, Normal S1, Normal S2 Extremities: No clubbing, No cyanosis General: Alert, Oriented X3, Cooperative HEENT: Atraumatic, PERRLA Lungs: Clear to auscultation, Normal air movement MUSCULOSKELETAL: No deformity, No swelling Neuro: Normal gait, Normal speech Psych/Mental Status: Mental status NL, Mood NL Skin: No rashes, No breakdown Assessment Assessment FINAL IMPRESSION: 1. Abdominal pain secondary to colitis. 2. Possible ischemic versus inflammatory colitis. Also CT scan shows cannot rule out malignancy. 3. Recurrent abdominal pain. PLAN: EGD+colon today labs ok, cxr ok ? home later today with oral antibiotics. Ct scan noted , small segment of colitis+diverticulosis. At this time, was admitted to the hospital and started on Cipro and Flagyl IV. GI was consulted. Hopefully, we can get colonoscopy and a biopsy and also surgical consult as a backup. Comment Review of Relevant I have reviewed the following items harriett (where applicable) has been applied. Labs Laboratory Tests Test 08/17/20 09:40 Coronavirus (PCR) Not detected (Not Detected) SARS-CoV-2 Antigen (Rapid) Negative (NEGATIVE) Medications Current Medications Bisacodyl (Dulcolax Tab) 10 mg 1X ONCE PO Last administered on 08/17/20at 1 1:55; Start 08/17/20 at 12:00; Stop 08/17/20 at 12:01; Status DC Bisacodyl (Dulcolax Tab) 10 mg 1X ONCE PO Last administered on 08/17/20at 16:47; Start 08/17/20 at 16:00; Stop 08/17/20 at 16:01; Status DC Fentanyl Citrate (Fentanyl 2ml Vial) 25 mcg PRN Q5MIN PRN IVP MILD PAIN 1-3; Start 08/18/20 at 06:00; Stop 08/19/20 at 05:59 Fentanyl Citrate (Fentanyl 2ml Vial) 50 mcg PRN Q5MIN PRN IVP MODERATE PAIN 4- 6; Start 08/18/20 at 06:00; Stop 08/19/20 at 05:59 Hydromorphone HCl (Dilaudid) 0.5 mg PRN Q10MIN PRN IVP SEVERE PAIN 7-10, 2nd CHOICE; Start 08/18/20 at 06:00; Stop 08/19/20 at 05:59 Magnesium Citrate (Citroma) 296 ml 1X ONCE PO Last administered on 08/17/20at 11:55; Start 08/17/20 at 12:00; Stop 08/17/20 at 12:01; Status DC Morphine Sulfate (Morphine Sulfate) 1 mg PRN Q10MIN PRN IVP SEVERE PAIN 7-10; Start 08/18/20 at 06:00; Stop 08/19/20 at 05:59 Polyethylene Glycol (miraLAX Powder BULK BOTTLE) 238 gm 1X ONCE PO Last administered on 08/17/20at 11:55; Start 08/17/20 at 13:00; Stop 08/17/20 at 13:0 1; Status DC Prochlorperazine Edisylate (Compazine) 5 mg PACU PRN PRN IVP NAUSEA, MRX1; Start 08/18/20 at 06:00; Stop 08/19/20 at 05:59 Ringer's Solution 1,000 ml @ 30 mls/hr Q24H IV ; Start 08/18/20 at 06:00; Stop 08/18/20 at 17:59 Vitals/I & O Vital Sign - Last 24 Hours 08/17/20 08/17/20 08/17/20 08/17/20 11:00 15:00 19:00 19:30 Temp 97.9 98.3 97.7 97.9 98.3 97.7 Pulse 68 66 65 Resp 16 16 18 B/P (MAP) 130/82 (98) 128/68 (88) 141/89 (106) Pulse Ox 94 96 98 O2 Delivery Room Air Room Air Room Air 08/17/20 08/18/20 08/18/20 23:00 03:00 07:00 Temp 97.9 97.6 97.7 97.9 97.6 97.7 Pulse 60 58 71 Resp 18 16 20 B/P (MAP) 134/83 (100) 124/85 (98) 145/93 (110) Pulse Ox 97 98 96 O2 Delivery Room Air Justifications for Admission Other Justification NEVIN SANTIAGO MD Aug 18, 2020 09:04
--- NOTE | 2020-08-18 09:48 | NUR ---
SW following. Discussed with RN, pt from home with family, room air, NPO, COVID-19 negative. Pt having an EGD and colonoscopy today. Per Dr. Sampson, pt may be able to discharge home with self care after procedure. RN advised no SW needs at this time. SW will continue to follow.
--- NOTE | 2020-08-18 10:10 | PDOC ---
SURGICAL PROGRESS NOTE DATE: 08/18/20 TIME: 10:08 Subjective pain improved, but still LUQ endoscopy planned today Vital Signs Vital Signs Date Time Temp Pulse Resp B/P (MAP) Pulse Ox O2 Delivery O2 Flow Rate FiO2 08/18/20 08:00 Room Air 08/18/20 07:00 97.7 71 20 145/93 (110) 96 97.7 General: Alert Abdomen: Soft, Other (LUQ TTP) Labs Laboratory Tests Test 08/16/20 16:05 08/16/20 16:50 08/17/20 06:25 08/17/20 09:40 Sodium Level 143 mmol/L (136-145) Potassium Level 4.0 mmol/L (3.5-5.1) Chloride Level 105 mmol/L (98-107) Carbon Dioxide Level 32 mmol/L (21-32) Anion Gap 6 (6-14) Blood Urea Nitrogen 11 mg/dL (7-20) Creatinine 0.7 mg/dL (0.6-1.0) Estimated GFR (Cockcroft-Gault) 87.9 BUN/Creatinine Ratio 16 (6-20) Glucose Level 118 mg/dL (70-99) Calcium Level 9.2 mg/dL (8.5-10.1) Total Bilirubin 0.2 mg/dL (0.2-1.0) Aspartate Amino Transf (AST/SGOT) 15 U/L (15-37) Alanine Aminotransferase (ALT/SGPT) 25 U/L (14-59) Alkaline Phosphatase 60 U/L (46-116) Total Protein 6.8 g/dL (6.4-8.2) Albumin 3.3 g/dL (3.4-5.0) Albumin/Globulin Ratio 0.9 (1.0-1.7) Amylase Level 57 U/L (25-115) Lipase 189 U/L (73-393) Urine Collection Type Unknown Urine Color Jen Urine Clarity Clear Urine pH 6.5 (<5.0-8.0) Urine Specific [place] 1.025 (1.000-1.030) Urine Protein Negative mg/dL (NEG-TRACE) Urine Glucose (UA) Negative mg/dL (NEG) Urine Ketones (Stick) Negative mg/dL (NEG) Urine Blood Negative (NEG) Urine Nitrite Negative (NEG) Urine Bilirubin Negative (NEG) Urine Urobilinogen Dipstick 0.2 mg/dL (0.2 mg/dL) Urine Leukocyte Esterase Small (NEG) Urine RBC 0 /HPF (0-2) Urine WBC Occ /HPF (0-4) Urine Squamous Epithelial Cells Many /LPF Urine Bacteria Moderate /HPF (0-FEW) Urine Mucus Marked /LPF White Blood Count 5.2 x10^3/uL (4.0-11.0) Red Blood Count 3.79 x10^6/uL (3.50-5.40) Hemoglobin 11.6 g/dL (12.0-15.5) Hematocrit 34.5 % (36.0-47.0) Mean Corpuscular Volume 91 fL (79-100) Mean Corpuscular Hemoglobin 31 pg (25-35) Mean Corpuscular Hemoglobin Concent 34 g/dL (31-37) Red Cell Distribution Width 13.3 % (11.5-14.5) Platelet Count 211 x10^3/uL (140-400) Neutrophils (%) (Auto) 35 % (31-73) Lymphocytes (%) (Auto) 46 % (24-48) Monocytes (%) (Auto) 8 % (0-9) Eosinophils (%) (Auto) 11 % (0-3) Basophils (%) (Auto) 1 % (0-3) Neutrophils # (Auto) 1.8 x10^3/uL (1.8-7.7) Lymphocytes # (Auto) 2.4 x10^3/uL (1.0-4.8) Monocytes # (Auto) 0.4 x10^3/uL (0.0-1.1) Eosinophils # (Auto) 0.6 x10^3/uL (0.0-0.7) Basophils # (Auto) 0.0 x10^3/uL (0.0-0.2) Iron Level 92 ug/dL (50-170) Total Iron Binding Capacity 269 ug/dL (250-450) Iron Saturation 34 % (15-34) Vitamin B12 Level 380 pg/mL (247-911) Coronavirus (PCR) Not detected (Not Detected) SARS-CoV-2 Antigen (Rapid) Negative (NEGATIVE) Problem List no surgical plans FU on endoscopy results Justicifation of Admission Dx: Justifications for Admission: Justification of Admission Dx: Yes PAT ACEVES INFANT NANNY Aug 18, 2020 10:10
[2020-08-18] MEDS: CIPROFLOXACIN 400MG PREMIX 200 ML IV SCH (10:21)
[2020-08-18 11:00] VITALS: BP 124/87
[2020-08-18] MEDS ORDERED: PROPOFOL 10 MG/ML (20ML) VIAL. IV ONE (12:32)
--- NOTE | 2020-08-18 13:33 | PDOC4 ---
PROCEDURE Procedure EGD/biopsy, colonoscopy. Indication: dysphagia/GERD/rectal bleeding/abdominal pain Meds: per anesthesia Findings: E--Healed, baseline grade ?, reflux esophagitis at 30 cm. G--HH , striped antral erythema, biopsied. D--normal to second portion. MARTHA--normal --'Scope advanced to cecum. Prep adequate. mucosa normal throughout. Scattered diverticula, sigmoid into distal transverse. No polyps, etc. Internal hemorrhoids on retroflex. Darryn. well. IMP: GERD HH Diverticulosis Internal hemorrhoids, likely site of recurrent bleeding. REC: Continue PPI chronically. Reassure re; hemorrhoidal bleeding. Repeat colonoscopy in 10 years. MARIAJOSE العلي MD Aug 18, 2020 13:33
[2020-08-18 15:00] VITALS: BP 141/84
--- NOTE | 2020-08-18 17:00 | NUR ---
Discharge Note: CALVIN VANG Discharge instructions and discharge home medications reviewed with Patient and a copy given. All questions have been answered and understanding verbalized. The following instructions and handouts were given: information about medications, activity, diet, follow up appointment, EGD/Colonoscopy, etc. Discontinued lines and drains: IV line in left hand removed, catheter tip intact. Patient discharged to home with self care with family member, wheelchair used for mobility to discharge vehicle.
[2020-08-18] MEDS ORDERED: LACTOBACILLUS RHAMNOSUS GG 1 CAPSULE. PO SCH (21:00)
--- NOTE | 2020-08-20 11:47 | PDOC ---
Provider Note Date of Service: DATE: 08/20/20 TIME: 11:46 Provider Note Discharge summary dictated.#[id number]. Justifications for Admission Other Justification NEVIN SANTIAGO MD Aug 20, 2020 11:47
--- NOTE | 2020-08-20 11:51 | DS ---
DATE OF DISCHARGE: 08/18/2020 REASON FOR ADMISSION TO THE HOSPITAL: Abdominal pain. PROCEDURES DONE: 1. CT of abdomen and pelvis. 2. EGD and colonoscopy. HOSPITAL COURSE: The patient is a 50-year-old female who comes with severe abdominal pain with second episode, other episode was more than a month ago, was supposed to have colonoscopy outpatient. She did not follow up. She came with abdominal pain. CT scan shows small area of colon and also diverticulosis, small area of some thickening in the colon and the patient was seen by GI, had EGD and colonoscopy. EGD shows reflux esophagitis. Biopsy was done. Colonoscopy shows diverticulosis, no polyps, internal hemorrhoids were seen. FINAL IMPRESSION: 1. Abdominal pain secondary to GERD with esophagitis. 2. Gastroesophageal reflux disease. 3. Internal hemorrhoids. 4.Diverticulosis? diverticulitis DISPOSITION: Home. FOLLOWUP: Follow up as outpatient. NEVIN SANTIAGO MD DR: ALEXIS/kristofer JOB#: [id number] / [id number] ANJALI
== END 2020-08-18 17:00 | disposition home or self-care (01) | DRG 392 ==
LOC: 4 NORTH 14:42
PROVIDERS: ADMIT Internal Medicine; ATTEND Internal Medicine
PROC: 0DB68ZX Excision of Stomach, Via Natural or Artificial Opening Endoscopic, Diagnostic (ICD-10-PCS; principal; 2020-08-18 13:00)
PROC: 0DJD8ZZ Inspection of Lower Intestinal Tract, Via Natural or Artificial Opening Endoscopic (ICD-10-PCS; 2020-08-18 13:00)
DX: K21.00 Gastro-esophageal reflux disease with esophagitis, without bleeding (principal); K57.32 Diverticulitis of large intestine without perforation or abscess without bleeding; K52.9 Noninfective gastroenteritis and colitis, unspecified; D64.9 Anemia, unspecified; K64.8 Other hemorrhoids; K76.0 Fatty (change of) liver, not elsewhere classified; N28.9 Disorder of kidney and ureter, unspecified; R13.10 Dysphagia, unspecified; Z20.822 Contact with and (suspected) exposure to COVID-19; Z87.891 Personal history of nicotine dependence
CPT/HCPCS: 36415; 43450; 45380; 71046; 74177; 80053; 81001; 82150; 82607; 83540; 83550; 83690; 85025; 87086; 87426; C9113; J0744; J2704; J3490; J7030; J7120; Q9966; Q9967; U0003; G0378